=== PATIENT | female | born 1950 | race Caucasian/White ===

== ENCOUNTER 2017-05-30 11:31 | Day surgery (SDC) | payer MEDICARE, BC ==
[~2017-05-30] VITALS: Ht 198.1 cm; Wt 78.9 kg
[~2017-05-30 11:31] MED LIST: ATECHL PO; ATEN50 PO; CALCAVITD PO; CIPR500 PO; DICY20 PO; ESTR2 PO; FLUO20 PO; GABA600 PO; LEVSOD125 PO; LEVSOD137 PO; MAGOXI400 PO; METR500 PO; MULVITB&C PO; MULVITMINF PO; NEPHROCAP PO; OXYB5 PO; OXYC5 PO; POTBIC25 PO; Percocet 5-3251 EACH PO; Prilosec2.5 MG; Prozac20 MG PO; SIMV80 PO; TRAZ50 PO; Zofran4 MG PO
== END 2017-05-30 16:15 | disposition home or self-care (01) ==
LOC: ORSCSDS 11:31
PROVIDERS: Obstetrics & Gynecology Gynecology
PROC: 0TSD0ZZ Reposition Urethra, Open Approach (ICD-10-PCS; principal; 2017-05-30 13:00)
DX: N39.3 Stress incontinence (female) (male) (principal); I10 Essential (primary) hypertension; F17.210 Nicotine dependence, cigarettes, uncomplicated; E03.9 Hypothyroidism, unspecified; Z79.899 Other long term (current) drug therapy
CPT/HCPCS: C1771; J0690; J1100; J1885; J2250; J2405; J3010; J7120

== ENCOUNTER → 2018-06-01 | Outpatient (CLI) | payer MEDICARE, BC ==
[2018-06-05 14:07] LABS: HPV 16 Negative (Negative); HPV 18 Negative (Negative); HPV OTHER HR TYPES Negative (Negative)
== END | disposition home or self-care (01) ==
LOC: LAB 14:16 → LAB SHORT 14:16
PROVIDERS: Obstetrics & Gynecology Gynecology
DX: Z12.72 Encounter for screening for malignant neoplasm of vagina (principal)
CPT/HCPCS: 87624; G0123

== ENCOUNTER → 2018-06-14 | Outpatient (CLI) | payer MEDICARE, BC ==
[~2018-06-14] MED LIST changes: +ACET325 PO; +CYAN500 PO; +LOSA50 PO; +POTA10T PO; -Prilosec2.5 MG; +Prilosec2.5 MG PO; +Vivelle-Dot1 EAC1 TD
[2018-06-14 12:00] LABS: Appearance, Urine Clear (Clear); Bilirubin, Urine Neg (Neg); Blood, Urine Neg (Neg); Color, Urine Pale Yellow (P-Yellow); Glucose Qualitative, Urine Neg (Neg); Ketones, Urine Neg (Neg); Leukocyte Esterase, Urine Neg (Neg); Nitrite, Urine Neg (Neg); Protein, Urine Trace (Neg); Urobilinogen, Urine NORM (Normal)
== END | disposition home or self-care (01) ==
LOC: LAB 11:26 → LAB SHORT 11:26
PROVIDERS: Obstetrics & Gynecology Gynecology
DX: Z01.812 Encounter for preprocedural laboratory examination (principal); N81.10 Cystocele, unspecified; N39.41 Urge incontinence
CPT/HCPCS: 81003

== ENCOUNTER 2018-06-21 05:50 | Day surgery (SDC) | payer MEDICARE, BC ==
[~2018-06-21] VITALS: Ht 162.6 cm; Wt 71.4 kg
--- NOTE | 2018-06-21 06:59 | NUR ---
Ambulatory in Day Surgery. History, Chart, Medications and Allergies reviewed before start of procedure. Lungs clear T/O to Auscultation. Patient confirms NPO status and agrees with scheduled surgery. Patient reports completing Chlorhexadine shower X2 prior to admission to hospital.
--- NOTE | 2018-06-21 12:13 | NUR ---
PT REPORTS PAIN IMPROVED SLIGHTLY TO 9/10
--- NOTE | 2018-06-21 14:45 | NUR ---
PT STOOD AT SIDE OF BED REMOVED EXCESS LINENS. CLEANED PT OF BLOODY VAGINAL DRAINAGE. PLACED NEW ANETA PAD W/MADONNA PANTIES. PT TOLERATED WELL. NOW SITTING UP IN BED. CALL LIGHT AND WOODWORK SALVAGE INSPECTOR IN REACH.
[2018-06-21 15:23] LABS: BASOPHILS ABSOLUTE AUTO 0.01 K/mm3 (0.00-0.23); BASOPHILS PERCENT AUTO 0 % (0-2); EOSINOPHILS PERCENT AUTO 0 % (0-6); Hematocrit 34.4 % (33.0-51.0); Hemoglobin 11.3 g/dL (11.5-16.0); IMMATURE GRAN ABSOLUTE AUTO 0.12 K/mm3 (0.00-0.10); IMMATURE GRAN PERCENT AUTO 1 % (0-1); LYMPHOCYTES PERCENT AUTO 7 % (21-46); MONOCYTES ABSOLUTE AUTO 0.11 K/mm3 (0.16-1.47); MONOCYTES PERCENT AUTO 1 % (4-13); Mean Corpuscular HGB 30.5 pg (26.0-34.0); Mean Corpuscular HGB Conc 32.8 g/dL (31.5-36.5); Mean Corpuscular Volume 93 fL (80-100); Mean Platelet Volume 10.8 fL (9.1-12.4); NEUTROPHILS ABSOLUTE AUTO 16.75 K/mm3 (1.96-9.15); NEUTROPHILS PERCENT AUTO 92 % (41-73); Platelet Count 233 K/mm3 (150-400); RDW Coefficient Variation 12.2 % (11.7-14.2); Red Blood Cell Count 3.71 M/mm3 (3.80-5.20); White Blood Cell Count 18.19 K/mm3 (4.00-11.30)
--- NOTE | 2018-06-21 16:00 | NUR ---
REPORT FROM EDWIN PARRA. ASSUMED PT CARE.
--- NOTE | 2018-06-21 16:06 | NUR ---
PT LYING IN BED. NADN. STATES PAIN IS 6/10 BUT MANAGEABLE. DENIES NAUSEA. DENIES NEED FOR BLANKETS. CALL LIGHT IN REACH. WILL CONT TO MONITOR.
--- NOTE | 2018-06-21 16:11 | NUR ---
TURNED OVER CARE TO LINDSEY Fried RN.
--- NOTE | 2018-06-21 17:50 | NUR ---
PT RESTING IN POSITION OF COMFORT. NADN. DENIES NEEDS. STATES PAIN MANAGED BY LAP MACHINE TENDER. DENIES NAUSEA.
--- NOTE | 2018-06-22 04:58 | NUR ---
SUMMARY POD 1 S/P A&P REPAIR. PT HAS DONE REALLY WELL DURING NIGHT. PAIN IS MANAGED FAIRLY WELL WITH MORPHINE MAIL CLERK BUT JUST HAS SOME ITCHING, BENADRYL HAS BEEN EFFECTIVE. PT HAS DENIED ANY N/V AND HAS BEEN TOLERATING PO WELL. HAVE CHANGED ANETA PAD AT BEGINNING OF SHIFT AND THIS AM AND PADS HAVE BEEN MODERATELY BLOODY. PACKING HAS BEEN REMOVED THIS AM AND TIMMONS DC'D. ANETA CARE DONE AND PLACED CLEAN PAD. WILL MONITOR FOR VAG BLEEDING AND FOR SPONT VOID. CALL LIGHT IN REACH.
[2018-06-22 06:24] LABS: BASOPHILS ABSOLUTE AUTO 0.01 K/mm3 (0.00-0.23); BASOPHILS PERCENT AUTO 0 % (0-2); EOSINOPHILS PERCENT AUTO 0 % (0-6); Hematocrit 30.7 % (33.0-51.0); Hemoglobin 10.3 g/dL (11.5-16.0); IMMATURE GRAN ABSOLUTE AUTO 0.06 K/mm3 (0.00-0.10); IMMATURE GRAN PERCENT AUTO 0 % (0-1); LYMPHOCYTES ABSOLUTE AUTO 2.44 K/mm3 (0.84-5.20); LYMPHOCYTES PERCENT AUTO 15 % (21-46); MONOCYTES ABSOLUTE AUTO 0.93 K/mm3 (0.16-1.47); MONOCYTES PERCENT AUTO 6 % (4-13); Mean Corpuscular HGB 30.8 pg (26.0-34.0); Mean Corpuscular HGB Conc 33.6 g/dL (31.5-36.5); Mean Corpuscular Volume 92 fL (80-100); Mean Platelet Volume 10.9 fL (9.1-12.4); NEUTROPHILS ABSOLUTE AUTO 12.95 K/mm3 (1.96-9.15); NEUTROPHILS PERCENT AUTO 79 % (41-73); Platelet Count 215 K/mm3 (150-400); RDW Standard Deviation 40.8 fL (35.1-46.3); Red Blood Cell Count 3.34 M/mm3 (3.80-5.20); White Blood Cell Count 16.39 K/mm3 (4.00-11.30)
[2018-06-22] MEDS ORDERED: Percocet 5-3251 EACH PO (10:28)
--- NOTE | 2018-06-22 13:22 | NUR ---
DISCHARGE PT EDUCATED ON AND RECEIVED PRINTED DC INSTRUCTIONS AND VERB AN UNDERSTANDING. IV DC'D. PAIN MANAGED WITH 2 PERCOCET, PT VOIDING WITH BLADDER SCAN <75ML, PT ABMULATING INDEP IN HALLWAY AND JAYCEE REG DIET. PT GATHERING ALL PERSONAL BELONGINGS AND WAITING FOR TO COME PICK HER UP. HARD RX FOR PERCOCET GIVEN TO PT.
== END 2018-06-22 13:40 | disposition home or self-care (01) ==
LOC: ORSCMMR 05:50 → ORD 07:30 → ORSCMMR 07:30 → SURS 10:52 → ORSCMMR 06-22 13:40
PROVIDERS: Obstetrics & Gynecology Gynecology
PROC: 0JQC0ZZ Repair Pelvic Region Subcutaneous Tissue and Fascia, Open Approach (ICD-10-PCS; principal; 2018-06-21 07:30)
DX: N81.6 Rectocele (principal); N81.10 Cystocele, unspecified; I10 Essential (primary) hypertension; E03.9 Hypothyroidism, unspecified; Z79.899 Other long term (current) drug therapy
CPT/HCPCS: 36415; 85025; J0690; J1100; J1885; J2405; J2704; J3010; J7120; Q0163

== ENCOUNTER → 2018-10-07 | Outpatient (CLI) | payer MEDICARE, BC ==
[2018-10-09 13:29] LABS: Stool Occult Blood Guaiac 1 Neg (Neg)
[2018-10-09 13:30] LABS: Stool Occult Blood Guaiac 2 Neg (Neg)
[2018-10-09 13:31] LABS: Stool Occult Blood Guaiac 3 Neg (Neg)
== END | disposition home or self-care (01) ==
LOC: LAB 06:30 → LAB SHORT 06:30 → LAB FUT 10-03 14:55
PROVIDERS: Internal Medicine
DX: D50.9 Iron deficiency anemia, unspecified (principal)
CPT/HCPCS: 82272

== ENCOUNTER 2021-04-28 09:11 | Day surgery (SDC) | payer MEDICARE ==
[~2021-04-28] VITALS: Ht 167.6 cm; Wt 69.0 kg
== END 2021-04-28 11:42 | disposition home or self-care (01) ==
LOC: ORSCSDS 09:11
PROVIDERS: Internal Medicine Gastroenterology
PROC: 0DBL8ZX Excision of Transverse Colon, Via Natural or Artificial Opening Endoscopic, Diagnostic (ICD-10-PCS; principal; 2021-04-28 10:30)
DX: Z12.11 Encounter for screening for malignant neoplasm of colon (principal); Z86.010 Personal history of colon polyps; D12.3 Benign neoplasm of transverse colon; K57.30 Diverticulosis of large intestine without perforation or abscess without bleeding; K64.8 Other hemorrhoids; K52.831 Collagenous colitis; I10 Essential (primary) hypertension; F32.A Depression, unspecified; E03.9 Hypothyroidism, unspecified; Z79.899 Other long term (current) drug therapy
CPT/HCPCS: 88305; J2704; J7120

== ENCOUNTER 2022-07-05 13:59 | Day surgery (SDC) | payer MEDICARE ==
[~2022-07-05] VITALS: Ht 167.6 cm; Wt 75.1 kg
[2022-07-05] MEDS ORDERED: MAGNESIUM OXID400 M2 (14:33)
[2022-07-05] MEDS ORDERED: VALS80 (14:33)
[2022-07-05] MEDS ORDERED: ROSU10TA (14:34)
[2022-07-05] MEDS ORDERED: DONEPEZIL HCL10 MG (14:34)
[2022-07-05] MEDS ORDERED: Prozac40 MG (14:34)
[2022-07-05] MEDS ORDERED: VITAMIN D310 MC4 (14:34)
--- NOTE | 2022-07-05 14:43 | NUR ---
07/05/22 1443 Maria L He 1432 TETRACAINE TO RIGHT EYE 1434 PLEDGET TO RIGHT EYE BY [facility].G
[2022-07-05 15:45] VITALS: BP 154/69
== END 2022-07-05 16:04 | disposition home or self-care (01) ==
LOC: ORSCSDS 13:59
PROVIDERS: Ophthalmology
PROC: 08DJ3ZZ Extraction of Right Lens, Percutaneous Approach (ICD-10-PCS; principal; 2022-07-05 15:30)
DX: H25.13 Age-related nuclear cataract, bilateral (principal); I10 Essential (primary) hypertension; K21.9 Gastro-esophageal reflux disease without esophagitis; F03.90 Unspecified dementia, unspecified severity, without behavioral disturbance, psychotic disturbance, mood disturbance, and anxiety; Z79.899 Other long term (current) drug therapy
CPT/HCPCS: J2250; J3010; J3301; J7040; V2632

== ENCOUNTER 2022-07-12 12:13 | Day surgery (SDC) | payer MEDICARE ==
[~2022-07-12] VITALS: Ht 167.6 cm; Wt 73.7 kg
[~2022-07-12 12:13] MED LIST changes: +DONEPEZIL HCL10 MG; +MAGNESIUM OXID400 M2; +Prozac40 MG; +ROSU10TA; +VALS80; +VITAMIN D310 MC4
[2022-07-12] MEDS ORDERED: DONEPEZIL HCL10 MG PO (12:31)
--- NOTE | 2022-07-12 12:38 | NUR ---
07/12/22 1238 Thierry Blanco CALL LIGHT WITHIN REACH. TETRACAINE IN AT 1233 AND PLEDGETT IN AT 1234
[2022-07-12 14:16] VITALS: BP 134/72
== END 2022-07-12 14:13 | disposition home or self-care (01) ==
LOC: ORSCSDS 12:13
PROVIDERS: Ophthalmology
PROC: 08DK3ZZ Extraction of Left Lens, Percutaneous Approach (ICD-10-PCS; principal; 2022-07-12 13:30)
DX: H25.12 Age-related nuclear cataract, left eye (principal); Z96.1 Presence of intraocular lens; I10 Essential (primary) hypertension; F03.90 Unspecified dementia, unspecified severity, without behavioral disturbance, psychotic disturbance, mood disturbance, and anxiety; K21.9 Gastro-esophageal reflux disease without esophagitis; F41.9 Anxiety disorder, unspecified; Z79.899 Other long term (current) drug therapy
CPT/HCPCS: J2001; J2250; J3010; J3301; J7040; V2632

== ENCOUNTER → 2023-04-16 | Outpatient (CLI) | payer MEDICARE ==
[~2023-04-16] MED LIST changes: +DONEPEZIL HCL10 MG PO
[2023-04-17 14:07] LABS: Campylobacter Sp Not Detected (NOT DETECT)
[2023-04-17 14:08] LABS: Adenovirus F 40/41 Not Detected (NOT DETECT); Astrovirus Not Detected (NOT DETECT); Cryptosporidium Not Detected (NOT DETECT); Cyclospora Cayetanensis Not Detected (NOT DETECT); E. Coli O157 Not Detected (NOT DETECT); Entamoeba Histolytica Not Detected (NOT DETECT); Enteroaggregative E. coli-EAEC Not Detected (NOT DETECT); Enteropathogenic E. coli-EPEC Not Detected (NOT DETECT); Enterotoxigenic E. coli-ETEC Not Detected (NOT DETECT); Giardia Lamblia Not Detected (NOT DETECT); Norovirus GI/GII Not Detected (NOT DETECT); Plesiomonas Shigelloides Not Detected (NOT DETECT); Rotavirus A Not Detected (NOT DETECT); Salmonella Sp Not Detected (NOT DETECT); Shiga Toxin-prod E. coli-STEC Not Detected (NOT DETECT); Shigella/Enteroin E. coli-EIEC Not Detected (NOT DETECT); Vibrio Cholerae Not Detected (NOT DETECT); Vibrio Sp Not Detected (NOT DETECT); Yersinia Enterocolitica Not Detected (NOT DETECT)
[2023-04-26 13:37] LABS: Sapovirus Not Detected (NOT DETECT)
== END ==
LOC: LAB SHORT 08:16 → LAB 08:16 → LAB FUT 04-13 14:00
PROVIDERS: Internal Medicine
DX: R19.7 Diarrhea, unspecified (principal); R10.9 Unspecified abdominal pain
CPT/HCPCS: 87507

== ENCOUNTER 2023-10-06 14:02 | Emergency (ER) | payer MEDICARE ==
[~2023-10-06] VITALS: Ht 167.6 cm; Wt 65.8 kg
[2023-10-06] MEDS ORDERED: Potassium Chl 20MEQ/Water100ML 100 ML IV SCH (17:40)
[2023-10-06] MEDS ORDERED: NS 1,000 ML IV SCH (17:40)
[2023-10-06] MEDS ORDERED: Potassium Chloride 20 MEQ TabCR PO ONE (17:40)
[2023-10-06] MEDS ORDERED: Mag Sulfate 1 GM/D5% 100ML 100 ML IV ONE (17:40)
[2023-10-06 18:50] LABS: BASOPHILS ABSOLUTE AUTO 0.04 K/mm3 (0.00-0.23); BASOPHILS PERCENT AUTO 0 % (0-2); EOSINOPHILS ABSOLUTE AUTO 0.07 K/mm3 (0.00-0.68); EOSINOPHILS PERCENT AUTO 1 % (0-6); Hematocrit 32.1 % (33.0-51.0); Hemoglobin 11.3 g/dL (11.5-16.0); IMMATURE GRAN ABSOLUTE AUTO 0.07 K/mm3 (0.00-0.10); IMMATURE GRAN PERCENT AUTO 1 % (0-1); LYMPHOCYTES ABSOLUTE AUTO 3.83 K/mm3 (0.84-5.20); LYMPHOCYTES PERCENT AUTO 29 % (21-46); MONOCYTES ABSOLUTE AUTO 0.74 K/mm3 (0.16-1.47); MONOCYTES PERCENT AUTO 6 % (4-13); Mean Corpuscular HGB 31.6 pg (26.0-34.0); Mean Corpuscular HGB Conc 35.2 g/dL (31.5-36.5); Mean Corpuscular Volume 90 fL (80-100); NEUTROPHILS ABSOLUTE AUTO 8.46 K/mm3 (1.96-9.15); NEUTROPHILS PERCENT AUTO 64 % (41-73); Platelet Count 244 K/mm3 (150-400); RDW Coefficient Variation 11.9 % (11.7-14.2); RDW Standard Deviation 38.7 fL (35.1-46.3); Red Blood Cell Count 3.58 M/mm3 (3.80-5.20); White Blood Cell Count 13.21 K/mm3 (4.00-11.30)
[2023-10-06 22:30] VITALS: BP 100/57
[2023-10-06] MEDS ORDERED: POTA10T PO (22:49)
== END 2023-10-06 23:02 | disposition home or self-care (01) ==
LOC: ER 14:02
PROVIDERS: Student in an Organized Health Care Education/Training Program
DX: E87.6 Hypokalemia (principal); N28.9 Disorder of kidney and ureter, unspecified; Z88.5 Allergy status to narcotic agent; Z79.899 Other long term (current) drug therapy; I10 Essential (primary) hypertension; E03.9 Hypothyroidism, unspecified; E78.5 Hyperlipidemia, unspecified; Z87.891 Personal history of nicotine dependence
CPT/HCPCS: 83735; 85025; 93005; 93010; 96365; 96366; 96368; 99283-25; A9270; J3475; J3480; J7030

== ENCOUNTER 2024-08-15 03:49 | Inpatient (IN) | payer OTHER, MEDICARE ==
[~2024-08-15] VITALS: Ht 165.1 cm; Wt 71.2 kg
[~2024-08-15 03:49] MED LIST changes: -Prozac40 MG; +Prozac40 MG PO; -ROSU10TA; +ROSUVASTATIN CA10 MG PO; -VALS80; +VALSARTAN160 MG PO
[2024-08-15] MEDS ORDERED: FentaNYL Citrate 50 MCG/ML 2 ML Injection IV ONE (03:55)
[2024-08-15 04:16] LABS: BASOPHILS ABSOLUTE AUTO 0.04 K/mm3 (0.00-0.23); BASOPHILS PERCENT AUTO 0 % (0-2); EOSINOPHILS ABSOLUTE AUTO 0.14 K/mm3 (0.00-0.68); EOSINOPHILS PERCENT AUTO 1 % (0-6); Hematocrit 32.3 % (33.0-51.0); Hemoglobin 11.2 g/dL (11.5-16.0); IMMATURE GRAN ABSOLUTE AUTO 0.06 K/mm3 (0.00-0.10); IMMATURE GRAN PERCENT AUTO 1 % (0-1); LYMPHOCYTES ABSOLUTE AUTO 2.39 K/mm3 (0.84-5.20); LYMPHOCYTES PERCENT AUTO 22 % (21-46); MONOCYTES ABSOLUTE AUTO 0.47 K/mm3 (0.16-1.47); MONOCYTES PERCENT AUTO 4 % (4-13); Mean Corpuscular HGB 31.1 pg (26.0-34.0); Mean Corpuscular HGB Conc 34.7 g/dL (31.5-36.5); Mean Corpuscular Volume 90 fL (80-100); Mean Platelet Volume 10.7 fL (9.1-12.4); NEUTROPHILS ABSOLUTE AUTO 7.99 K/mm3 (1.96-9.15); NEUTROPHILS PERCENT AUTO 72 % (41-73); Platelet Count 211 K/mm3 (150-400); RDW Coefficient Variation 12.7 % (11.7-14.2); RDW Standard Deviation 42.3 fL (35.1-46.3); White Blood Cell Count 11.09 K/mm3 (4.00-11.30)
[2024-08-15 05:02] LABS: Source, Urine Foley catheter
[2024-08-15 05:13] LABS: Appearance, Urine Clear (Clear); Bilirubin, Urine Neg (Neg); Blood, Urine Neg (Neg); Color, Urine Yellow (P-Yellow); Glucose Qualitative, Urine Neg (Neg); Ketones, Urine Neg (Neg); Leukocyte Esterase, Urine Neg (Neg); Nitrite, Urine Neg (Neg); Protein, Urine 1+ (Neg); Specific Gravity, Urine 1.015 (1.003-1.022); Urobilinogen, Urine NORM (Normal)
[2024-08-15] MEDS ORDERED: Ondansetron HCl 2 MG / ML 2ML Vial IV PRN (05:20)
[2024-08-15] MEDS ORDERED: FentaNYL Citrate 50 MCG/ML 2 ML Injection IV PRN (05:20)
[2024-08-15] MEDS ORDERED: Acetaminophen 325 MG TABLET PO PRN (05:20)
[2024-08-15] MEDS ORDERED: Naloxone HCl 0.4MG / ML 1ML Vial IV PRN (05:25)
[2024-08-15 05:33] LABS: Albumin, Blood 3.5 g/dL (3.4-5.0); Albumin/Globulin Ratio 1.1 (0.8-1.8); Bilirubin, Total 0.3 mg/dL (0.1-1.0); Bun/Creatinine Ratio 8.7 (12.0-20.0); Calcium, Blood 8.8 mg/dL (8.5-10.1); Creatinine, Blood 1.49 mg/dL (0.40-1.00); Globulin, Blood 3.1 g/dL (2.2-4.0); Potassium, Blood 3.4 mmol/L (3.5-5.5); Total Protein, Blood 6.6 g/dL (6.4-8.2)
[2024-08-15] MEDS ORDERED: HYDROmorphone HCl/Pf 1MG SYR IV ONE (05:40)
[2024-08-15] MEDS ORDERED: Lactated Ringer's 1,000 ML IV SCH (06:00)
[2024-08-15] MEDS ORDERED: TraZODone HCl 50 MG Tab PO PRN (06:30)
[2024-08-15] MEDS ORDERED: Potassium Chloride 40 MEQ in NS 250 ML IV ONE (06:40)
[2024-08-15] MEDS ORDERED: Levothyroxine Sodium 0.137 MG Tab PO SCH (07:00)
[2024-08-15 07:11] LABS: Magnesium, Blood 1.6 mg/dL (1.6-2.4); Thyroid Stimulating Hormone 1.47 uIU/mL (0.360-4.800)
[2024-08-15] MEDS ORDERED: Tranexamic Acid 100 ML IV SCH (07:50)
[2024-08-15] MEDS ORDERED: CeFAZolin Sodium 2,000 MG in NS 100 ML IV SCH (07:50)
[2024-08-15] MEDS ORDERED: oxyBUTYnin chloride 5 MG TAB PO SCH (09:00)
[2024-08-15] MEDS ORDERED: Docusate Sodium 100 MG Cap PO SCH (09:00)
--- NOTE | 2024-08-15 09:24 | NUR ---
ATTEMPTED TO CALL FOR REPORT ON PT. RN IN ANOTHER ROOM AND WILL RETURN CALL.
[2024-08-15 09:57] VITALS: BP 152/57
--- NOTE | 2024-08-15 10:03 | NUR ---
PT ARRIVED TO UNIT AT APROX 0956 FROM ER. PT A/O X'S 4. PT LUNGS CLEAR, DENIES SOB OR CP UPON ARRIVAL. DENIES HITTING HEAD OR ANY LOC WITH FALL. RLE EXTERNALLY ROTATED AND SHORTNED SLIGHTLY, REPORTS PAIN. WEAK PEDAL PULSE IN BLE, CAP REFILL 4 SEC. NO OTHER C/O OTHER THAN R HIP PAIN. REPORT GIVEN TO PRIMARY RN AT APROX 1009
--- NOTE | 2024-08-15 13:56 | NUR ---
"Spiritual Care | Pt. Request Pt. is awake in bed and welcomes my visit. Pt. is pleasant but speaks softly and displays ocassional moments of confusion. facilitated a life review and listen with interest and empathy. Pt. verbalized her hope that she would be able to have her surgery today. Seek to normalize the Pt. experience. Prayed with the Pt. Pt. verbalized gratitude for the spiritual care visit and welcomed this sales supervisor to return."
[2024-08-15 14:45] VITALS: BP 153/71
--- NOTE | 2024-08-15 17:17 | NUR ---
SHIFT SUMMARY PT TO HAVE SURGERY TOMORROW. NPO AT MIDNIGHT. IVF INFUSING PER ORDERS. TIMMONS IN PLACE WITH DARK YELLOW URINE. R HIP EXTERNALLY ROTATED AND SHORTENED. POSITIONED ON PILLOWS WITH ICE FOR COMFORT. IV FENTANYL FOR PAIN CONTROL. ECHO COMPLETED THIS EVENING. PT USES CALL LIGHT APPROPRIATELY.
--- NOTE | 2024-08-15 17:50 | NUR ---
AGREE WITH SN SHIFT ASSESSMENT.
[2024-08-15 19:21] VITALS: BP 149/71
[2024-08-15] MEDS ORDERED: Donepezil HCl 5 MG Tab PO SCH (21:00)
[2024-08-16] VITALS (18 sets, daily range): BP systolic 108–151; BP diastolic 62–99
--- NOTE | 2024-08-16 04:21 | NUR ---
SHIFT SUMMARY PATIENT HAS BEEN RESTING INTERMITTANTLY BETWEEN PAIN MEDICATION. SHE HAS BEEN GETTING 50 MCG OF IV FENTANYL EVERY 2 HOURS ORDERED BY MD. LR IS INFUSING WITHOUT COMPLICATIONS. PATIENT HAS BEEN NPO SINCE MIDNIGHT. PATIENT ORIENTED X 3. SHE HAS HER CALL LIGHT WITHIN REACH AND IS USING IT APPROPRIATELY. TIMMONS CATHETER IS PATENT. SAFETY PRECAUTIONS ARE BEING MAINTAINED.
[2024-08-16 05:49] LABS: BASOPHILS ABSOLUTE AUTO 0.02 K/mm3 (0.00-0.23); BASOPHILS PERCENT AUTO 0 % (0-2); EOSINOPHILS ABSOLUTE AUTO 0.02 K/mm3 (0.00-0.68); EOSINOPHILS PERCENT AUTO 0 % (0-6); Hemoglobin 9.3 g/dL (11.5-16.0); IMMATURE GRAN ABSOLUTE AUTO 0.06 K/mm3 (0.00-0.10); IMMATURE GRAN PERCENT AUTO 1 % (0-1); LYMPHOCYTES PERCENT AUTO 17 % (21-46); MONOCYTES PERCENT AUTO 6 % (4-13); Mean Corpuscular HGB 31.3 pg (26.0-34.0); Mean Corpuscular HGB Conc 34.4 g/dL (31.5-36.5); Mean Corpuscular Volume 91 fL (80-100); NEUTROPHILS ABSOLUTE AUTO 8.24 K/mm3 (1.96-9.15); NEUTROPHILS PERCENT AUTO 75 % (41-73); Platelet Count 170 K/mm3 (150-400); RDW Coefficient Variation 12.8 % (11.7-14.2); RDW Standard Deviation 42.1 fL (35.1-46.3); Red Blood Cell Count 2.97 M/mm3 (3.80-5.20); White Blood Cell Count 10.94 K/mm3 (4.00-11.30)
[2024-08-16] MEDS ORDERED: Omeprazole 20 MG CapCR PO SCH (06:00)
[2024-08-16] MEDS ORDERED: Lactated Ringer's 1,000 ML IV SCH (06:10)
[2024-08-16 06:18] LABS: Calcium, Blood 8.6 mg/dL (8.5-10.1); Creatinine, Blood 1.25 mg/dL (0.40-1.00); Potassium, Blood 3.9 mmol/L (3.5-5.5)
--- NOTE | 2024-08-16 06:49 | NUR ---
History, Chart, Medications and Allergies reviewed before start of procedure. Patient confirms NPO status and agrees with scheduled surgery. Pre-Op teaching done. Pt verbalizes understanding. DENTURES LEFT IN PATIENT ROOM IN DENTURE CUP.
[2024-08-16] MEDS ORDERED: Labetalol HCL 5 MG/ML 4ML Injection (Single Dose) IV PRN (07:25)
[2024-08-16] MEDS ORDERED: HYDROmorphone HCl/Pf 1MG SYR IV PRN ×2 (07:25)
[2024-08-16] MEDS ORDERED: FentaNYL Citrate 50 MCG/ML 2 ML Injection IV PRN ×2 (07:25→07:30)
[2024-08-16] MEDS ORDERED: Bupivacaine 0.5% HCl 5 MG/ML 30MLVIAL ONE ×2 (07:26→08:52)
[2024-08-16] MEDS ORDERED: propofoL 20 ML IV ONE (07:39)
[2024-08-16] MEDS ORDERED: Rocuronium Bromide 10 MG/ML 5ML Injection IV ONE (07:39)
[2024-08-16] MEDS ORDERED: Dexamethasone Sod Phos 10 MG/ML 1ML VIAL ONE (08:08)
[2024-08-16] MEDS ORDERED: Ondansetron HCl 2 MG / ML 2ML Vial ONE (08:08)
[2024-08-16] MEDS ORDERED: FentaNYL Citrate 50 MCG/ML 2 ML Injection ONE (08:13)
[2024-08-16] MEDS ORDERED: Phenylephrine HCl 100 MCG/ML-NS 10MLSYR (1MG/10ML) ONE (08:16)
[2024-08-16] MEDS ORDERED: Sugammadex Sodium 200 MG/2ML SDV (100 MG/ML) ONE (08:29)
--- NOTE | 2024-08-16 09:58 | NUR ---
NOTIFIED PT SPOUSE THAT PT HAD SURGERY AND IS DOING WELL AND IS STABLE.
[2024-08-16] MEDS ORDERED: TRAZ150T57 PO (12:04)
[2024-08-16] MEDS ORDERED: OxyCODONE HCL 5 MG TAB PO PRN (12:40)
[2024-08-16] MEDS ORDERED: CeFAZolin Sodium 2,000 MG in NS 100 ML IV SCH (16:00)
[2024-08-16] MEDS ORDERED: ROPINIROLE HC0.2510 PO (16:24)
--- NOTE | 2024-08-16 16:31 | NUR ---
SHIFT SUMMARY POD 0 R HIP GAMMA NAILING. X2 AQUACEL DRESSINGS WITH PINPOINT SHADOWINGS ARE DRY AND INTACT. UP WITH THERAPY TO STAND 1 ASSIST WITH FWW. WBAT. ROXICODONE FOR PAIN CONTROL. SHANELLE PATENT. IVF PER ORDERS. SLOWLY JAYCEE REG DIET. OCCASSIONALLY NEEDS 1L O2 VIA NC WHILE SLEEPING. CONT BIOX IN PLACE. USES CALL LIGHT APPROPRIATELY.
[2024-08-17 02:46] VITALS: BP 97/67
--- NOTE | 2024-08-17 04:57 | NUR ---
MECHANICAL UNIT REPAIRER SUMMARY PT IS POD 0 FOR R HIP GAMMA NAILING. 2 AQUACEL DRESSINGS TO R HIP WITH A SMALL PINPOINT AREA OF SHADOWING ON EACH DRESSING THAT IS UNCHANGED THROUGH THE NIGHT. PAIN HAS BEEN FAIRLY WELL CONTROLLED WITH OXYCODONE AND TYLENOL. PT DOES SEEM TO GET A BIT CONFUSED NOT LONG AFTER RECIEVING THE OXYCODONE. PT WOKE UP IN MIDDLE OF THE NIGHT VERY CONFUSED AND TOOK AWHILE TO REORIENT HER. HAS BEEN ABLE TO SLEEP OFF AND ON THROUGH THE NIGHT. TIMMONS CATH PATENT AND DRAINING YELLOW URINE. PT HAS BEEN ON 1L O2 WHILE SLEEPING, O2 SATS MAINTAINING MID 90'S. OTHER VSS, WILL CONTINUE TO MONITOR.
[2024-08-17 06:02] LABS: BASOPHILS ABSOLUTE AUTO 0.02 K/mm3 (0.00-0.23); BASOPHILS PERCENT AUTO 0 % (0-2); EOSINOPHILS PERCENT AUTO 0 % (0-6); Hematocrit 23.6 % (33.0-51.0); Hemoglobin 8.2 g/dL (11.5-16.0); IMMATURE GRAN ABSOLUTE AUTO 0.12 K/mm3 (0.00-0.10); IMMATURE GRAN PERCENT AUTO 1 % (0-1); LYMPHOCYTES ABSOLUTE AUTO 1.79 K/mm3 (0.84-5.20); LYMPHOCYTES PERCENT AUTO 10 % (21-46); MONOCYTES ABSOLUTE AUTO 1.19 K/mm3 (0.16-1.47); MONOCYTES PERCENT AUTO 7 % (4-13); Mean Corpuscular HGB 31.7 pg (26.0-34.0); Mean Corpuscular HGB Conc 34.7 g/dL (31.5-36.5); Mean Corpuscular Volume 91 fL (80-100); Mean Platelet Volume 11.6 fL (9.1-12.4); NEUTROPHILS ABSOLUTE AUTO 14.82 K/mm3 (1.96-9.15); NEUTROPHILS PERCENT AUTO 83 % (41-73); Platelet Count 147 K/mm3 (150-400); RDW Coefficient Variation 12.7 % (11.7-14.2); RDW Standard Deviation 42.1 fL (35.1-46.3); Red Blood Cell Count 2.59 M/mm3 (3.80-5.20); White Blood Cell Count 17.94 K/mm3 (4.00-11.30)
[2024-08-17 06:38] LABS: Bun/Creatinine Ratio 15.3 (12.0-20.0); Calcium, Blood 8.4 mg/dL (8.5-10.1); Creatinine, Blood 1.24 mg/dL (0.40-1.00); Potassium, Blood 4.1 mmol/L (3.5-5.5)
[2024-08-17 07:18] VITALS: BP 98/62
[2024-08-17] MEDS ORDERED: Enoxaparin 40 MG/0.4 ML SYR SC SCH (09:00)
[2024-08-17] MEDS ORDERED: Aspirin 81 MG TabEC PO SCH (09:00)
--- NOTE | 2024-08-17 09:00 | NUR ---
pt laying in bed awake, a/ox4, pleasant and cooperative with care, follows commands well, reports pain to right hip, medicated per orders, lungs are clear t/o, resp even and unlabored, no cough noted, was on 1 liter 02 through the night, on r/a at this time, hrr, no edema noted, ppp+2, cap refill <3 sec, vs stable, afebrile, piv site is clear and patent, btx4, abd flat soft nontender, reports no bm since , gave prune juice and stool softeners as ordered, has costa cath draining clear yellow urine, skin has dressing to right hip x2, dana, pelon, call light in reach.
[2024-08-17 15:42] VITALS: BP 99/65
[2024-08-17 20:00] VITALS: BP 101/81
[2024-08-18 03:22] VITALS: BP 98/55
[2024-08-18 06:08] LABS: Hematocrit 22.9 % (33.0-51.0); Hemoglobin 7.7 g/dL (11.5-16.0); Mean Corpuscular HGB 30.6 pg (26.0-34.0); Mean Corpuscular HGB Conc 33.6 g/dL (31.5-36.5); Mean Corpuscular Volume 91 fL (80-100); Mean Platelet Volume 11.7 fL (9.1-12.4); Platelet Count 156 K/mm3 (150-400); RDW Standard Deviation 43.1 fL (35.1-46.3); Red Blood Cell Count 2.52 M/mm3 (3.80-5.20)
[2024-08-18 06:35] LABS: Iron Serum 17 ug/dL (50-170); Magnesium, Blood 1.6 mg/dL (1.6-2.4); Percent Saturation 6.6 % (15.0-50.0); Total Iron Binding Capacity 256 ug/dL (250-450)
--- NOTE | 2024-08-18 06:35 | NUR ---
HOUSEHOLD APPLIANCE REPAIRER SUMMARY PT IS POD 1 FOR R HIP GAMMA NAILING. PT IS AMBULATING WITH A STRONG 2 ASSIST TO THE C. TIMMONS CATHETER REMOVED AND HEMATOMA NOTED TO R INNER THIGH, AREA IS SOFT AND NON TENDER. PT'S PAIN HAS BEEN WELL MANAGED WITH OXYCODONE PER MAR. PT HAD NO SPELLS OF CONFUSION THROUGH THE NIGHT. VSS, WCTM.
[2024-08-18 06:38] LABS: Albumin, Blood 2.8 g/dL (3.4-5.0); Anion Gap 8 mmol/L (3-11); Blood Urea Nitrogen 20 mg/dL (8-24); Bun/Creatinine Ratio 15.4 (12.0-20.0); CO2, Blood 25 mmol/L (21-32); Calcium, Blood 8.9 mg/dL (8.5-10.1); Chloride, Blood 107 mmol/L (98-108); Ferritin, Serum 114 ng/mL (8-252); Glomerular Filtration Rate 43 (60-); Glucose, Blood 95 mg/dL (70-99); Phosphorus, Blood 2.7 mg/dL (2.5-4.9); Potassium, Blood 3.8 mmol/L (3.5-5.5); Sodium, Blood 136 mmol/L (136-145)
[2024-08-18 07:12] VITALS: BP 94/57
[2024-08-18 15:29] VITALS: BP 94/57
--- NOTE | 2024-08-18 18:08 | NUR ---
SHIFT SUMMARY POD 2 L HIP NAILING, AQUACELS X2 WITH SLIGHT SHADOWING. PATIENT IS 1-2 ASSIST TO BSC/CHAIR. BED ALARM ON FOR SAFETY. SLIGHTLY FORGETFUL AT TIMES. CALL LIGHT IS IN REACH. TOLERATING PO INTAKE AND VOIDING WELL. NO ACUTE EVENTS THIS SHIFT.
[2024-08-18 19:40] VITALS: BP 104/70
[2024-08-19 04:24] VITALS: BP 95/61
--- NOTE | 2024-08-19 04:54 | NUR ---
GLOBAL ANALYTICS HEAD SUMMARY NO ACUTE CHANGES THIS SHIFT. PT AAOX4 AND CALLS APPROPRIATELY. ABLE TO GET UP TO BSC WITH 1 ASSIST TONIGHT. R HIP PAIN MANAGED WITH PRN OXYCODONE. DRESSINGS TO R HIP WITH SMALL AMOUNT OF SHADOWING THAT IS UNCHANGED FROM YESTERDAY. BRUISING/SWELLING TO R INNER THIGH APPEARS SLIGHTLY IMPROVED, AREA STILL SOFT AND NON TENDER. PT HAS REMAINED ON ROOM AIR THROUGH THE NIGHT AND MAINTAINED O2 SATS >90. VSS, WILL CONTINUE TO MONITOR.
[2024-08-19 05:38] LABS: Hematocrit 21.6 % (33.0-51.0); Hemoglobin 7.3 g/dL (11.5-16.0); Mean Corpuscular HGB 30.8 pg (26.0-34.0); Mean Corpuscular HGB Conc 33.8 g/dL (31.5-36.5); Mean Corpuscular Volume 91 fL (80-100); Mean Platelet Volume 11.5 fL (9.1-12.4); Platelet Count 179 K/mm3 (150-400); RDW Coefficient Variation 13.2 % (11.7-14.2); RDW Standard Deviation 43.8 fL (35.1-46.3); Red Blood Cell Count 2.37 M/mm3 (3.80-5.20); White Blood Cell Count 8.92 K/mm3 (4.00-11.30)
[2024-08-19 05:57] LABS: Bun/Creatinine Ratio 16.1 (12.0-20.0); Creatinine, Blood 1.43 mg/dL (0.40-1.00); Potassium, Blood 3.9 mmol/L (3.5-5.5)
[2024-08-19 07:27] VITALS: BP 112/66
[2024-08-19] MEDS ORDERED: Iron Dextran 50 MG / ML 2ML Vial IV ONE (08:35)
[2024-08-19] MEDS ORDERED: Iron Dextran 975 MG in NS 250 ML IV ONE (10:30)
[2024-08-19] MEDS ORDERED: Polyethylene Glycol 3350 17 gm PO PRN (10:35)
[2024-08-19 15:12] VITALS: BP 100/59
[2024-08-19] MEDS ORDERED: XARELTO20 MG PO (15:21)
--- NOTE | 2024-08-19 17:19 | NUR ---
SHIFT SUMMARY NO ACUTE CHANGE THIS SHIFT. VSS. TOLERATED PT WELL TODAY. HAS AMBULATE TO BATHROOM MULTIPLE TIMES THIS SHIFT, LITTLE SBA GIVEN, PT AMBULATING WELL. PAIN MANAGEMENT WITH PO MEDS ONLY - SUCCESFUL. PT LOOKING FORWARD TO DC'ING TO SNF TOMORROW.
[2024-08-19 19:19] VITALS: BP 100/61
[2024-08-20 04:09] VITALS: BP 105/60
--- NOTE | 2024-08-20 06:27 | NUR ---
POWER MANAGER SUMMARY PT DID WELL WITH AMBULATION TONIGHT AND HAS BEEN GETTING ALL THE WAY INTO THE BATHROOM WITH A STANDBY ASSIST AND FWW. PAIN MANAGED WITH OXYCODONE PER MAY. BRUISING TO R INNER THIGH APPEARS SLIGHTLY INCREASED BUT PT STILL DENIES PAIN TO THE AREA AND IT IS STILL SOFT. NO OTHER COMPLAINTS FROM PT. VSS, WILL CONTINUE TO MONITOR.
[2024-08-20 07:40] VITALS: BP 105/62
[2024-08-20 09:54] LABS: Hematocrit 21.4 % (33.0-51.0); Hemoglobin 7.2 g/dL (11.5-16.0)
--- NOTE | 2024-08-20 14:06 | NUR ---
PROVIDER SPOKE TO DR MEREDITH REGRDING CONCERN FOR CONTINUED HGB DROP SINCE ADMISSION AND HAVING HAD TRANSFUSING IRON 08/19. ORDERS TO REPEAT H&H, NO ORDERS FOR IRON LEVEL. SPOKE TO DR HORVATH REGARDING INNER THGIH BRUISING OF R LEG AND LARGER BORDER OF BRUISING OVERNIGHT. YULIET ASSESSED, NO CONCERN NOTED. STATES THIS IS LEFT OVER BRUISING FROM FRACTURE. DISCUSSED WITH PT.
[2024-08-20 15:07] VITALS: BP 113/58
--- NOTE | 2024-08-20 17:39 | NUR ---
SHIFT SUMMARY SEE PROVIDER NOTE. NO ACUTE CHANGES THIS SHIFT. VSS. AXO4. HAS TOLERATED AMBULATION WELL. INCREASED ECCHYMOSIS TO R INNER THIGH/POPLITEAL AREA, ASSESSED BY ORTHO YULIET. SEE NOTE. PAIN MANAGEMENT WORKING WELL PER PT. PT VERBALIZES INCREASING DESIRE TO DC FROM HOSPITAL TO GET BACK TO "[facility] AND KICKSTART HER RECOVERY PROCESS". PT WAS SCHEDULED TO DC TO SNF TODAY BUT DELAYED IN THE CARE MANAGEMENT/INSURANCE DEPARTMENT. HOPEFUL FOR DC TOMORROW.
[2024-08-20 20:14] VITALS: BP 105/63
[2024-08-21 04:11] VITALS: BP 107/54
--- NOTE | 2024-08-21 04:13 | NUR ---
SHIFT SUMMARY NO ACUTE CHANGES TO REPORT OVERNIGHT, PAIN MANAGED PER EMAR. PT HAS BEEN UP AND AMBULATING TO THE BATHROOM. SURGICAL SITE WNL. PT AMBULATING WELL WITH FWW, SBA. VITALS STABLE. PLAN OF CARE REMAINS UNCHANGED. BED IN LOWEST POSITION, CALL LIGHT WITHIN REACH.
[2024-08-21 07:24] VITALS: BP 109/70
[2024-08-21] MEDS ORDERED: Iron Dextran 50 MG / ML 2ML Vial IV ONE (09:55)
[2024-08-21 10:21] LABS: Hematocrit 24.6 % (33.0-51.0); Hemoglobin 8.2 g/dL (11.5-16.0)
[2024-08-21 14:00] VITALS: BP 100/86
--- NOTE | 2024-08-21 14:45 | NUR ---
DISCHARGE PATIENT DISCHARGED TO [facility]. REPORT TO SEVERO PARRA. PATIENT PACKET AND ALL BELONGINGS WITH FORKLIFT DRIVER. IV TAKEN OUT INTACT. PATIENT LEAVES VIA TRANSPORT SERVICE.
== END 2024-08-21 14:10 | DRG 481 ==
LOC: ER 03:49 → SURS 03:50
PROVIDERS: Emergency Medicine; Internal Medicine; Orthopaedic Surgery Sports Medicine; ADMIT Student in an Organized Health Care Education/Training Program
PROC: 0QS636Z Reposition Right Upper Femur with Intramedullary Internal Fixation Device, Percutaneous Approach (ICD-10-PCS; principal; 2024-08-16 07:30)
DX: S72.141A Displaced intertrochanteric fracture of right femur, initial encounter for closed fracture (principal); D62 Acute posthemorrhagic anemia; F03.93 Unspecified dementia, unspecified severity, with mood disturbance; I12.9 Hypertensive chronic kidney disease with stage 1 through stage 4 chronic kidney disease, or unspecified chronic kidney disease; N18.30 Chronic kidney disease, stage 3 unspecified; E03.9 Hypothyroidism, unspecified; E61.1 Iron deficiency; R01.1 Cardiac murmur, unspecified; E87.6 Hypokalemia; E78.5 Hyperlipidemia, unspecified; W01.0XXA Fall on same level from slipping, tripping and stumbling without subsequent striking against object, initial encounter; Y92.002 Bathroom of unspecified non-institutional (private) residence as the place of occurrence of the external cause; Z88.5 Allergy status to narcotic agent; Z79.890 Hormone replacement therapy; Z87.891 Personal history of nicotine dependence
CPT/HCPCS: 36415; 51702; 73502; 80048; 80053; 80069; 82728; 83540; 83550; 83735; 84443; 85014; 85018; 85025; 85027; 93005; 93010; 93306; 94762; 96365-59; 96366-59; 96375-59; 96376; 96376-59; 97110; 97116; 97161; 97530; 99285-25; A9270; C1713; G0378; J0690; J1100; J1171; J1650; J1750; J2371; J2405; J2704; J3010; J3480; J7050; J7120

== ENCOUNTER → 2024-10-01 | Outpatient (CLI) | payer MEDICARE ==
[~2024-10-01] MED LIST changes: +ROPINIROLE HC0.2510 PO; +TRAZ150T57 PO; +XARELTO20 MG PO
[2024-10-01 13:22] LABS: Anion Gap 5.0 mmol/L (3-11); Blood Urea Nitrogen 15.0 mg/dL (8-24); CO2, Blood 27.0 mmol/L (21-32); Calcium, Blood 9.3 mg/dL (8.5-10.1); Chloride, Blood 107.0 mmol/L (98-108); Creatinine, Blood 1.16 mg/dL (0.40-1.00); Glucose, Blood 91.0 mg/dL (70-99); Potassium, Blood 3.4 mmol/L (3.5-5.5); Sodium, Blood 136.0 mmol/L (136-145); Thyroid Stimulating Hormone 0.382 uIU/mL (0.360-4.800)
== END | disposition home or self-care (01) ==
LOC: LAB 11:53 → LAB SHORT 11:53
PROVIDERS: Internal Medicine
DX: I12.9 Hypertensive chronic kidney disease with stage 1 through stage 4 chronic kidney disease, or unspecified chronic kidney disease (principal); N18.32 Chronic kidney disease, stage 3b; E03.9 Hypothyroidism, unspecified
CPT/HCPCS: 80048; 84443